=== PATIENT | male | born 1995 | race Hispanic/Latino ===

== ENCOUNTER 2017-07-10 01:42 | Emergency (ER) | payer OTHER ==
[2017-07-10 01:57] VITALS: RESP 16; TEMP 98.8; O2SAT 99
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
[2017-07-10 03:10] VITALS: BP 118/81
[2017-07-10 03:36] VITALS: PULSE 86
== END 2017-07-10 03:08 | disposition home or self-care (01) ==
LOC: H.ER 01:42
DX: S01.111A Laceration without foreign body of right eyelid and periocular area, initial encounter (principal); W50.0XXA Accidental hit or strike by another person, initial encounter; Z23 Encounter for immunization

== ENCOUNTER 2017-07-19 16:01 | Emergency (ER) | payer OTHER ==
[2017-07-19 16:13] VITALS: BP 126/80; PULSE 95; RESP 16; TEMP 98.6; O2SAT 98
--- NOTE | 2017-07-19 16:17 | ED PDOC ---
HPI: Wound Care - HPI Time Seen by Provider: 07/19/17 16:17 Chief Complaint (Nursing): Suture/Staple Removal Chief Complaint (Provider): suture removal History Per: Patient Additional Complaint(s): 21-year-old male presents for suture removal of laceration to right eyebrow that was repaired 10 days ago. Tetanus is up-to-date. Patient denies fever, chills, drainage or bleeding from the affected area. Past Medical History Reviewed: Historical Data, Nursing Documentation, Vital Signs Vital Signs: Last Vital Signs Temp 98.6 F 07/19/17 16:11 Pulse 95 H 07/19/17 16:11 Resp 16 07/19/17 16:11 BP 126/80 07/19/17 16:11 Pulse Ox 98 07/19/17 16:11 - Medical History PMH: No Chronic Diseases - Family History Family History: States: No Known Family Hx - Living Arrangements Living Arrangements: With Friends/Others - Social History Current smoker - smoking cessation education provided: No Alcohol: None Drugs: Denies - Immunization History Hx Tetanus Toxoid Vaccination: Yes - Allergies Allergies/Adverse Reactions: Allergies Allergy/AdvReac Type Severity Reaction Status Date / Time No Known Allergies Allergy Verified 07/19/17 16:11 Review of Systems ROS Statement: Except As Marked, All Systems Reviewed And Found Negative Skin: Positive for: Other (removal of sutures from right eyebrow laceration) Physical Exam - Reviewed Nursing Documentation Reviewed: Yes Vital Signs Reviewed: Yes - Physical Exam Appears: Positive for: Well, Non-toxic, No Acute Distress Skin: Positive for: Normal Color (Well-healed suture laceration noted to the right lateral eyebrow, no infection, neurovascular intact). Negative for: Rash Eye Exam: Positive for: Normal appearance Neurologic/Psych: Positive for: Alert, Oriented - ECG O2 Sat by Pulse Oximetry: 98 Pulse Ox Interpretation: Normal Medical Decision Making Medical Decision Makin-year-old male here for suture removal. All sutures from laceration were removed without any difficulty, wound is well healed with no infection. Patient was instructed to follow up as needed with primary doctor. Disposition - Clinical Impression Clinical Impression: Removal of suture - Patient ED Disposition Is Patient to be Admitted: No Counseled Patient/Family Regarding: Need For Followup - Disposition Referrals: [facility] [Outside] Disposition: Routine/Home Disposition Time: 16:28 Condition: STABLE Additional Instructions: Keep area clean and dry. Wear sunscreen when outside to prevent sun exposure and scar formation. Follow up as needed with primary care doctor. Instructions: Stitches Removal Forms: [employer] (Spanish)
== END 2017-07-19 17:51 | disposition home or self-care (01) ==
LOC: H.ER 16:01
DX: Z48.02 Encounter for removal of sutures (principal)